=== PATIENT | male | born 1950 | race Caucasian/White ===

== ENCOUNTER 2024-07-26 17:32 | Emergency (ER) | payer OTHER ==
[2024-07-26 18:20] LABS: Absolute Basophils 0.1 K/uL (0-0.5); Absolute Eosinophils 0.2 K/uL (0-0.5); Absolute Lymphocytes (CBC) 2.3 K/uL (0.7-4.9); Absolute Monocytes 0.5 K/uL (0.1-1.3); Absolute Neutrophil 4.8 K/uL (1.8-8.0); Basophils % 0.8 % (0-1.3); Eosinophils % 2.1 % (0-4.4); Hematocrit 41.5 % (39.6-49.0); Hemoglobin 14.2 g/dL (13.6-17.9); Lymphocytes % 29.6 % (15.3-44.8); MCH 31.1 pg (27.0-35.0); MCHC 34.2 g/dL (32.0-36.0); MCV 90.9 fL (80-100); MPV 8.9 fL (7.6-11.3); Monocytes % 6.1 % (3.3-12.3); Neutrophils % 61.4 % (41.7-73.7); Platelets 259 thou/uL (152-406); RBC Red Blood Cell Count 4.57 M/uL (4.33-5.43); Red Cell Distribution Width 13.7 % (12.1-15.2)
[2024-07-26 18:39] LABS: Anion Gap 11.3 mEq/L (5.0-15.0); Potassium 3.3 mEq/L (3.5-5.1); Troponin High Sensitivity 4.8 pg/mL (<58.9)
--- NOTE | 2024-07-26 19:13 | RAD REPORT ---
Procedure: Chest Single View HISTORY: Hypotension COMPARISON: none FINDINGS: The lungs appear clear of acute infiltrate. No significant pleural effusion noted. The heart is normal size. IMPRESSION: No acute abnormality is displayed.
--- NOTE | 2024-07-26 20:02 | EDPHYS ---
Physician Documentation [facility] Name: Jaylan Rodriguez Jr Age: 74 yrs Sex: Male : 1950 Arrival Date: 07/26/2024 Time: 17:32 Bed 8 Private MD: ED Physician Cyrus Landa HPI: 07/26 18:02 This 74 yrs old Male presents to ER via Wheelchair with complaints of Low blood jj9 pressure, Headache. 18:02 75-year-old male with past medical history significant for hypertension, COPD, jj9 hyperlipidemia, fatty liver, type 2 diabetes comes emergency department complaining of 1 episode of low blood pressure. The patient reports he took this blood pressure medication this morning and this afternoon felt lightheaded he subsequently checked his blood pressure and it was in the 80s systolic. He denies chest pain or shortness of breath fever, chills nausea or vomiting. He feels better now.. Historical: - Allergies: 17:40 Sulfa (Sulfonamide Antibiotics); ap3 - PMHx: 17:40 Diabetes mellitus; Hypertensive disorder; Hypercholesterolemia; Chronic obstructive ap3 lung disease; fatty liver; - Immunization history:: Client reports receiving the 2nd dose of the Covid vaccine, Flu vaccine is not up to date. - Infectious Disease History:: Denies. - Social history:: Smoking status: Patient denies any tobacco usage or history of. ROS: 18:03 Constitutional: Negative for body aches, chills, fatigue, jj9 18:03 Eyes: Negative for acute changes, 18:03 ENT: Negative for injury or acute deformity, 18:03 Neck: Negative for mass, pain with movement, 18:03 Cardiovascular: Negative for chest pain, edema, orthopnea, palpitations, 18:03 Respiratory: Negative for shortness of breath, 18:03 Respiratory: Negative for 18:03 Abdomen/GI: Negative for abdominal pain, 18:03 MS/extremity: Negative for injury or acute deformity, 18:03 Neuro: Negative for altered mental status, weakness, acute changes, 18:03 Allergy/Immunology: Negative for allergies, hayfever, 18:03 All other systems are negative, Exam: 18:04 Constitutional: This is a well developed, well nourished patient who is awake, alert, jj9 and in no acute distress. 18:04 Neuro: Awake and alert, GCS 15, oriented to person, place, time, and situation. Cranial nerves II-XII grossly intact. Motor strength 5/5 in all extremities. Sensory grossly intact. Cerebellar exam normal. Normal gait. 18:04 Head/face: Exam is negative for 18:04 Eyes: Exam is negative for 18:04 ENT: Exam is negative for 18:04 Chest/axilla: Exam negative for 18:04 Cardiovascular: Rate: normal, Rhythm: regular, Pulses: Heart sounds: normal, 18:04 Respiratory: Exam negative for Breath sounds: are clear throughout, 18:04 Abdomen/GI: Exam negative for Inspection: obese 18:04 Musculoskeletal/extremity: Exam is negative for ROM: no acute changes, 18:04 Neuro: Exam negative for Orientation: is normal, Mentation: is normal, 19:59 ECG was reviewed by the Attending Physician. Normal sinus rhythm rate of [address]-T jj9 changes. Vital Signs: 17:38 BP 105 / 67; Pulse 65; Resp 17; Temp 97.7(O); Pulse Ox 98% ; Weight 98.43 kg; Height 5 ap3 ft. 8 in. ; Pain 3/10; 18:18 BP 105 / 65; Pulse 73; Resp 16; Pulse Ox 96% ; bp 19:00 BP 101 / 69; Pulse 66; Resp 16; Pulse Ox 96% on R/A; al5 19:50 BP 115 / 69; Pulse 64; Resp 18; Pulse Ox 98% ; al5 17:38 Body Mass Index 32.99 (98.43 kg, 172.72 cm) ap3 17:38 Pain Scale: Adult ap3 MDM: 17:51 Medical Screening Exam initiated jj9 19:59 Differential diagnosis: hypoglycemia, hyponatremia, Hypotension, renal failure, jj9 medication reaction, ACS, etc. 20:00 ED course: The patient appears in no distress he remains hemodynamically stable. When jj9 asked he reports his blood pressure usually who was around [id number] systolic blood pressure at home. He is currently on 50 mg of atenolol twice daily. Laboratories as discussed above significant for decreased GFR and a creatinine of 1.5. The patient was advised to discuss Atenolol dose with PCP hold tonight's dose and follow-up with PCP. The patient feels fine and ready go home. I will discharge the patient home advised to continue monitoring blood pressure and if worsening of symptoms return to the emergency department. The patient understands and agrees with the plan.. 20:03 Data reviewed: vital signs, nurses notes. 07/26 18:01 Order name: Basic Metabolic Panel; Complete Time: 19:23 07/26 19:23 Interpretation: Abnormal: NA 132; K 3.3; GLUC 298; CRE 1.52; GFR 48; BUN 22. 07/26 18:01 Order name: CBC with Diff; Complete Time: 19:23 07/26 19:23 Interpretation: Within normal limits. 07/26 18:01 Order name: Troponin HS; Complete Time: 19:23 07/26 19:24 Interpretation: Within normal limits. 07/26 18:01 Order name: XRAY Chest (1 view); Complete Time: 19:23 07/26 19:24 Interpretation: No acute disease. 07/26 18:01 Order name: EKG; Complete Time: 18:01 07/26 18:01 Order name: Cardiac monitoring; Complete Time: 18:13 07/26 18:01 Order name: EKG - Nurse/Tech; Complete Time: 18:19 07/26 18:01 Order name: IV Saline Lock; Complete Time: 18:13 07/26 18:01 Order name: Labs collected and sent; Complete Time: 18:13 07/26 18:01 Order name: O2 Per Protocol; Complete Time: 18:13 07/26 18:01 Order name: O2 Sat Monitoring; Complete Time: 18:13 Administered Medications: No medications were administered Disposition: 20:03 Co-signature as Attending Physician, Cyrus Landa MD. jj9 Disposition Summary: 07/26/24 20:02 Discharge Ordered Notes: Location: Home jj9 Problem: new jj9 Condition: Stable jj9 Diagnosis - Hypotension, unspecified jj9 Followup: jj9 - With: Private Physician - When: - Reason: Recheck today's complaints Discharge Instructions: - Discharge Summary Sheet jj9 - Hypotension jj9 Forms: - Medication Reconciliation Form jj9 - Antibiotic Education jj9 - Prescription Opioid Use jj9 - Patient Portal Instructions jj9 - Leadership Thank You Letter jj9 Signatures: Dispatcher Rhonda Casas RN RN ap3 Cyrus Landa MD MD jj9
--- NOTE | 2024-07-26 20:02 | ER ---
Nurse's Notes [facility] Name: Jaylan Rodriguez Jr Age: 74 yrs Sex: Male : 1950 Arrival Date: 07/26/2024 Time: 17:32 Bed 8 Private MD: Diagnosis: Hypotension, unspecified Presentation: 07/26 17:38 Chief complaint: Patient states: he has been having low blood pressure for a couple of ap3 days, but started having a headache today. patient also reports feeling light headed and dizzy this afternoon. Coronavirus screen: At this time, the client does not indicate any symptoms associated with coronavirus-19. Ebola Screen: No symptoms or risks identified at this time. Initial Sepsis Screen: Does the patient meet any 2 criteria? No. Patient's initial sepsis screen is negative. Does the patient have a suspected source of infection? No. Patient's initial sepsis screen is negative. Risk Assessment: Do you want to hurt yourself or someone else? Patient reports no desire to harm self or others. Onset of symptoms was July 26, 2024. 17:38 Method Of Arrival: Wheelchair ap3 17:38 Acuity: [place] 3 ap3 Triage Assessment: 17:41 General: Appears in no apparent distress. Behavior is calm, cooperative, appropriate ap3 for age. 17:42 Pain: Complains of pain in head Pain currently is 3 out of 10 on a pain scale. Pain ap3 began this afternoon. Neuro: Level of Consciousness is awake, alert, obeys commands, Oriented to person, place, time, situation, Reports dizziness, headache. Cardiovascular: Patient's skin is warm and dry. Respiratory: Airway is patent Respiratory effort is even, unlabored, Respiratory pattern is regular, symmetrical. 17:43 Headache History: The patient has had previous headaches. Pain: Also complains of no ap3 other associated symptoms. Historical: - Allergies: 17:40 Sulfa (Sulfonamide Antibiotics); ap3 - PMHx: 17:40 Diabetes mellitus; Hypertensive disorder; Hypercholesterolemia; Chronic obstructive ap3 lung disease; fatty liver; - Immunization history:: Client reports receiving the 2nd dose of the Covid vaccine, Flu vaccine is not up to date. - Infectious Disease History:: Denies. - Social history:: Smoking status: Patient denies any tobacco usage or history of. Screenin:42 Abuse screen: Denies threats or abuse. Nutritional screening: No deficits noted. ap3 Tuberculosis screening: No symptoms or risk factors identified. 19:56 [facility] ED Fall Risk Assessment (Adult) History of falling in the last 3 months, al5 including since admission No falls in past 3 months (0 pts) Confusion or Disorientation No (0 pts) Intoxicated or Sedated No (0 pts) Impaired Gait No (0 pts) Mobility Assist Device Used No (0 pt) Altered Elimination No (0 pt) Score/Fall Risk Level 0 - 2 = Low Risk Oriented to surroundings, Maintained a safe environment, Hourly rounding (assess needs \T\ fall precautionary measures) done. Assessment: 17:45 General: Appears in no apparent distress. comfortable, Behavior is calm, cooperative, bp appropriate for age. Pain: Complains of pain in head. 19:54 General: Appears in no apparent distress. comfortable, Behavior is calm, cooperative. al5 Pain: Denies pain. Neuro: Level of Consciousness is awake, alert, obeys commands, Oriented to person, place, time, situation. Cardiovascular: Capillary refill < 3 seconds Patient's skin is warm and dry. Respiratory: Airway is patent Respiratory effort is even, unlabored, Respiratory pattern is regular, symmetrical. GI: No signs and/or symptoms were reported involving the gastrointestinal system. : No signs and/or symptoms were reported regarding the genitourinary system. EENT: No signs and/or symptoms were reported regarding the EENT system. Derm: Skin is intact, is healthy with good turgor, Skin is pink, warm \T\ dry. normal. Musculoskeletal: No signs and/or symptoms reported regarding the musculoskeletal system. Vital Signs: 17:38 BP 105 / 67; Pulse 65; Resp 17; Temp 97.7(O); Pulse Ox 98% ; Weight 98.43 kg; Height 5 ap3 ft. 8 in. ; Pain 3/10; 18:18 BP 105 / 65; Pulse 73; Resp 16; Pulse Ox 96% ; bp 19:00 BP 101 / 69; Pulse 66; Resp 16; Pulse Ox 96% on R/A; al5 19:50 BP 115 / 69; Pulse 64; Resp 18; Pulse Ox 98% ; al5 17:38 Body Mass Index 32.99 (98.43 kg, 172.72 cm) ap3 17:38 Pain Scale: Adult ap3 ED Course: 17:32 Patient arrived in ED. im 17:40 Triage completed. ap3 17:43 Akbar Smith, RN is Primary Nurse. bp 17:43 Arm band placed on right wrist. ap3 17:51 Cyrus Landa MD is Attending Physician. jj9 18:18 Patient has correct armband on for positive identification. bp 18:18 No provider procedures requiring assistance completed. Initial lab(s) drawn, by ct, bp sent to lab. EKG done, by ED staff, reviewed by Cyrus Landa MD. Inserted saline lock: 20 gauge in right antecubital area, using aseptic technique. Blood collected. Flushed with 10 mL NS. 18:29 XRAY Chest (1 view) In Process Unspecified. EDMS 20:17 Provided Education on: discharge follow up. al5 20:17 IV discontinued, intact, bleeding controlled, No redness/swelling at site. Pressure al5 dressing applied. Administered Medications: No medications were administered Medication: 20:17 VIS not applicable for this client. al5 Outcome: 20:02 Discharge ordered by . jj9 20:17 Discharged to home ambulatory, with significant other, al5 20:17 Condition: good 20:17 Discharge instructions given to patient, Instructed on discharge instructions, follow up and referral plans. Demonstrated understanding of instructions, follow-up care, 21:06 Patient left the ED. al5 Signatures: Dispatcher [employer] EDVT Akbar Smith, RN [place] Rhonda Harris RN RN 3 Heidi Che Rhonda Soliz RN RN al5 Cyrus Landa MD MD jj9
[2024-07-27 04:10] VITALS: TEMP 97.7
[2024-07-27 04:15] VITALS: BP 115/69; O2SAT 98
== END 2024-07-26 21:06 | disposition home or self-care (01) ==
LOC: ER 17:32
DX: I95.9 Hypotension, unspecified (principal); E11.9 Type 2 diabetes mellitus without complications; I10 Essential (primary) hypertension; J44.9 Chronic obstructive pulmonary disease, unspecified
CPT/HCPCS: 36415; 71045; 80048; 84484; 85025; 93005; 99284